=== PATIENT | female | born 1930 | race Caucasian/White ===

== ENCOUNTER 2016-09-10 18:27 | Emergency (ER) | payer MEDICARE, BC ==
[~2016-09-10] VITALS: Ht 152.4 cm; Wt 72.6 kg
[~2016-09-10 18:27] MED LIST: PRALUENT S75 MG/1 ML INJECT; XANAX0.25 MG PO; ZOFRAN ODT4 M1 PO
[2016-09-10] MEDS ORDERED: TUMS500 MG PO (18:48)
[2016-09-10] MEDS ORDERED: CEROVITE ADVANC1 TAB PO (18:49)
[2016-09-10] MEDS ORDERED: HALFPRIN81 MG PO (18:49)
[2016-12-11] MEDS ORDERED: IMODIUM2 MG PO (18:04)
[2016-12-11] MEDS ORDERED: ZOFRAN ODT8 MG PO (18:05)
[2016-12-11] MEDS ORDERED: ARICEPT5 MG PO (18:06)
[2016-12-11] MEDS ORDERED: GAS RELIEF80 MG PO (18:06)
[2016-12-11] MEDS ORDERED: XANAX0.25 MG PO (18:19)
[2016-12-12] MEDS ORDERED: XANAX0.25 MG PO (09:15)
[2016-12-12] MEDS ORDERED: ECOTRIN325 MG PO (09:18)
== END 2016-09-10 20:15 | disposition short-term general hospital (02) ==
LOC: ER 18:27
DX: N39.0 Urinary tract infection, site not specified (principal); N28.89 Other specified disorders of kidney and ureter; Z88.2 Allergy status to sulfonamides; Z88.0 Allergy status to penicillin; Z88.1 Allergy status to other antibiotic agents
CPT/HCPCS: J0696

== ENCOUNTER → 2016-09-11 | Outpatient (CLI) | payer MEDICARE, BC ==
[~2016-09-11] MED LIST changes: +AMBIEN5 MG PO; +ARICEPT5 MG PO; +ASPIRIN325 MG PO; +CENTRUM SILVER1 EAC1 PO; +CEROVITE ADVANC1 TAB PO; +ECOTRIN325 MG PO; +GAS RELIEF80 MG PO; +HALFPRIN81 MG PO; +IMODIUM2 MG PO; +LOPRESSOR25 MG PO; +MILK OF MAGNESI30 ML PO; +PREDNISONE10 MG PO; +PREVALITE PACKET4 GM PO; +SODIUM BICARBO650 MG PO; +TUMS500 MG PO; +TYLENOL325 MG PO; +ZOFRAN ODT8 MG PO; +ZYRTEC5 MG PO
== END | disposition short-term general hospital (02) ==
LOC: CLUROL 08:28
DX: R31.0 Gross hematuria (principal)

== ENCOUNTER 2016-09-23 13:35 | Emergency (ER) | payer MEDICARE, BC ==
[~2016-09-23] VITALS: Ht 152.4 cm; Wt 68.0 kg
[~2016-09-23 13:35] MED LIST changes: -AMBIEN5 MG PO; -ARICEPT5 MG PO; -ASPIRIN325 MG PO; -CENTRUM SILVER1 EAC1 PO; -ECOTRIN325 MG PO; -GAS RELIEF80 MG PO; -IMODIUM2 MG PO; -LOPRESSOR25 MG PO; -MILK OF MAGNESI30 ML PO; -PREDNISONE10 MG PO; -PREVALITE PACKET4 GM PO; -SODIUM BICARBO650 MG PO; -TYLENOL325 MG PO; -ZOFRAN ODT8 MG PO; -ZYRTEC5 MG PO
[2016-12-11] MEDS ORDERED: IMODIUM2 MG PO (18:04)
[2016-12-11] MEDS ORDERED: ZOFRAN ODT8 MG PO (18:05)
[2016-12-11] MEDS ORDERED: GAS RELIEF80 MG PO (18:06)
[2016-12-11] MEDS ORDERED: ARICEPT5 MG PO (18:06)
[2016-12-11] MEDS ORDERED: XANAX0.25 MG PO (18:19)
[2016-12-12] MEDS ORDERED: XANAX0.25 MG PO (09:15)
[2016-12-12] MEDS ORDERED: ECOTRIN325 MG PO (09:18)
== END 2016-09-23 21:45 | disposition short-term general hospital (02) ==
LOC: ER 13:35
DX: E86.0 Dehydration (principal); D72.829 Elevated white blood cell count, unspecified; R19.7 Diarrhea, unspecified; I12.0 Hypertensive chronic kidney disease with stage 5 chronic kidney disease or end stage renal disease; N18.6 End stage renal disease; N17.9 Acute kidney failure, unspecified; I25.10 Atherosclerotic heart disease of native coronary artery without angina pectoris; F32.9 Major depressive disorder, single episode, unspecified; E78.5 Hyperlipidemia, unspecified; Z90.49 Acquired absence of other specified parts of digestive tract; Z90.710 Acquired absence of both cervix and uterus; Z79.82 Long term (current) use of aspirin; Z79.899 Other long term (current) drug therapy; Z93.6 Other artificial openings of urinary tract status; Z88.0 Allergy status to penicillin; Z88.2 Allergy status to sulfonamides; Z88.8 Allergy status to other drugs, medicaments and biological substances
CPT/HCPCS: J2405

== ENCOUNTER 2016-10-17 20:56 | Emergency (ER) | payer MEDICARE, BC ==
[~2016-10-17] VITALS: Ht 152.4 cm; Wt 70.3 kg
[2016-12-11] MEDS ORDERED: IMODIUM2 MG PO (18:04)
[2016-12-11] MEDS ORDERED: ZOFRAN ODT8 MG PO (18:05)
[2016-12-11] MEDS ORDERED: GAS RELIEF80 MG PO (18:06)
[2016-12-11] MEDS ORDERED: ARICEPT5 MG PO (18:06)
[2016-12-11] MEDS ORDERED: XANAX0.25 MG PO (18:19)
[2016-12-12] MEDS ORDERED: XANAX0.25 MG PO (09:15)
[2016-12-12] MEDS ORDERED: ECOTRIN325 MG PO (09:18)
== END 2016-10-18 02:10 | disposition short-term general hospital (02) ==
LOC: ER 20:56
DX: N39.0 Urinary tract infection, site not specified (principal); R11.2 Nausea with vomiting, unspecified; I12.9 Hypertensive chronic kidney disease with stage 1 through stage 4 chronic kidney disease, or unspecified chronic kidney disease; N18.3 Chronic kidney disease, stage 3 (moderate); D72.829 Elevated white blood cell count, unspecified; Z88.1 Allergy status to other antibiotic agents; Z88.0 Allergy status to penicillin; Z87.891 Personal history of nicotine dependence; Z88.2 Allergy status to sulfonamides
CPT/HCPCS: J2270; J2405

== ENCOUNTER 2016-10-23 12:40 | Day surgery (SDC) | payer MEDICARE, BC ==
[2016-12-11] MEDS ORDERED: IMODIUM2 MG PO (18:04)
[2016-12-11] MEDS ORDERED: ZOFRAN ODT8 MG PO (18:05)
[2016-12-11] MEDS ORDERED: GAS RELIEF80 MG PO (18:06)
[2016-12-11] MEDS ORDERED: ARICEPT5 MG PO (18:06)
[2016-12-11] MEDS ORDERED: XANAX0.25 MG PO (18:19)
[2016-12-12] MEDS ORDERED: XANAX0.25 MG PO (09:15)
[2016-12-12] MEDS ORDERED: ECOTRIN325 MG PO (09:18)
== END 2016-10-23 13:44 | disposition short-term general hospital (02) ==
LOC: SURGOP 12:40
PROC: 0TP98DZ Removal of Intraluminal Device from Ureter, Via Natural or Artificial Opening Endoscopic (ICD-10-PCS; principal; 2016-10-23)
DX: Z46.6 Encounter for fitting and adjustment of urinary device (principal); B37.9 Candidiasis, unspecified

== ENCOUNTER 2016-10-26 15:38 | Emergency (ER) | payer MEDICARE, BC ==
[~2016-10-26] VITALS: Ht 152.4 cm; Wt 59.0 kg
[2016-10-26] MEDS ORDERED: TYLENOL325 MG PO (15:51)
[2016-10-26] MEDS ORDERED: ZYRTEC5 MG PO (15:53)
[2016-10-26] MEDS ORDERED: PREVALITE PACKET4 GM PO (15:54)
[2016-10-26] MEDS ORDERED: MILK OF MAGNESI30 ML PO (15:55)
[2016-10-26] MEDS ORDERED: LOPRESSOR25 MG PO (15:55)
[2016-10-26] MEDS ORDERED: CENTRUM SILVER1 EAC1 PO (15:56)
[2016-10-26] MEDS ORDERED: PREDNISONE10 MG PO (15:57)
[2016-10-26] MEDS ORDERED: GAS RELIEF80 MG PO (15:57)
[2016-10-26] MEDS ORDERED: AMBIEN5 MG PO (15:58)
[2016-12-11] MEDS ORDERED: IMODIUM2 MG PO (18:04)
[2016-12-11] MEDS ORDERED: ZOFRAN ODT8 MG PO (18:05)
[2016-12-11] MEDS ORDERED: GAS RELIEF80 MG PO (18:06)
[2016-12-11] MEDS ORDERED: ARICEPT5 MG PO (18:06)
[2016-12-11] MEDS ORDERED: XANAX0.25 MG PO (18:19)
[2016-12-12] MEDS ORDERED: XANAX0.25 MG PO (09:15)
[2016-12-12] MEDS ORDERED: ECOTRIN325 MG PO (09:18)
== END 2016-10-26 18:10 | disposition short-term general hospital (02) ==
LOC: ER 15:38
DX: N19 Unspecified kidney failure (principal); E87.5 Hyperkalemia; D72.829 Elevated white blood cell count, unspecified; Z88.0 Allergy status to penicillin; Z88.2 Allergy status to sulfonamides; I10 Essential (primary) hypertension; E78.5 Hyperlipidemia, unspecified; Z87.440 Personal history of urinary (tract) infections; Z87.442 Personal history of urinary calculi
CPT/HCPCS: J1815

== ENCOUNTER 2016-10-31 18:20 | Emergency (ER) | payer MEDICARE, BC ==
[~2016-10-31] VITALS: Ht 152.4 cm; Wt 68.0 kg
[~2016-10-31 18:20] MED LIST changes: +AMBIEN5 MG PO; +CENTRUM SILVER1 EAC1 PO; +GAS RELIEF80 MG PO; +LOPRESSOR25 MG PO; +MILK OF MAGNESI30 ML PO; +PREDNISONE10 MG PO; +PREVALITE PACKET4 GM PO; +TYLENOL325 MG PO; +ZYRTEC5 MG PO
[2016-10-31] MEDS ORDERED: ASPIRIN325 MG PO (18:52)
[2016-10-31] MEDS ORDERED: SODIUM BICARBO650 MG PO (18:55)
[2016-12-11] MEDS ORDERED: IMODIUM2 MG PO (18:04)
[2016-12-11] MEDS ORDERED: ZOFRAN ODT8 MG PO (18:05)
[2016-12-11] MEDS ORDERED: GAS RELIEF80 MG PO (18:06)
[2016-12-11] MEDS ORDERED: ARICEPT5 MG PO (18:06)
[2016-12-11] MEDS ORDERED: XANAX0.25 MG PO (18:19)
[2016-12-12] MEDS ORDERED: XANAX0.25 MG PO (09:15)
[2016-12-12] MEDS ORDERED: ECOTRIN325 MG PO (09:18)
== END 2016-10-31 22:15 | disposition short-term general hospital (02) ==
LOC: ER 18:20
DX: E86.0 Dehydration (principal); N17.9 Acute kidney failure, unspecified; Z88.1 Allergy status to other antibiotic agents; Z88.0 Allergy status to penicillin; Z93.2 Ileostomy status
CPT/HCPCS: J2405

== ENCOUNTER 2016-11-02 14:08 | Emergency (ER) | payer MEDICARE, BC ==
[~2016-11-02] VITALS: Ht 152.4 cm; Wt 63.5 kg
[~2016-11-02 14:08] MED LIST changes: +ASPIRIN325 MG PO; +SODIUM BICARBO650 MG PO
[2016-12-11] MEDS ORDERED: IMODIUM2 MG PO (18:04)
[2016-12-11] MEDS ORDERED: ZOFRAN ODT8 MG PO (18:05)
[2016-12-11] MEDS ORDERED: ARICEPT5 MG PO (18:06)
[2016-12-11] MEDS ORDERED: GAS RELIEF80 MG PO (18:06)
[2016-12-11] MEDS ORDERED: XANAX0.25 MG PO (18:19)
[2016-12-12] MEDS ORDERED: XANAX0.25 MG PO (09:15)
[2016-12-12] MEDS ORDERED: ECOTRIN325 MG PO (09:18)
== END 2016-11-02 17:00 | disposition short-term general hospital (02) ==
LOC: ER 14:08
DX: E83.42 Hypomagnesemia (principal); R53.1 Weakness; R19.7 Diarrhea, unspecified; N19 Unspecified kidney failure; I25.10 Atherosclerotic heart disease of native coronary artery without angina pectoris; F41.8 Other specified anxiety disorders; M19.90 Unspecified osteoarthritis, unspecified site; K21.9 Gastro-esophageal reflux disease without esophagitis; M81.0 Age-related osteoporosis without current pathological fracture; I34.0 Nonrheumatic mitral (valve) insufficiency; Z87.19 Personal history of other diseases of the digestive system; Z90.49 Acquired absence of other specified parts of digestive tract; Z86.79 Personal history of other diseases of the circulatory system; Z85.53 Personal history of malignant neoplasm of renal pelvis; Z93.2 Ileostomy status; Z98.890 Other specified postprocedural states; Z95.1 Presence of aortocoronary bypass graft; Z79.82 Long term (current) use of aspirin; Z79.899 Other long term (current) drug therapy; Z88.2 Allergy status to sulfonamides; Z88.1 Allergy status to other antibiotic agents; Z88.8 Allergy status to other drugs, medicaments and biological substances; Z87.891 Personal history of nicotine dependence
CPT/HCPCS: J3475